=== PATIENT | female | born 1960 | race Caucasian/White ===

== ENCOUNTER 2018-05-11 00:53 | Inpatient (IN) | payer BC ==
[~2018-05-11] VITALS: Ht 165.1 cm; Wt 78.5 kg
[~2018-05-11 00:53] MED LIST: BUSP10TA PO; DOCU-131 PO; ENOX30SY4 SQ; HYDR-3237 PO; LORA1TAB PO; METF500T27 PO; METO-93 PO; OXYC-302 PO; PRAZ1CAP2 PO; TOPI50TA8 PO; TRAZ-136 PO
[2018-05-11] MEDS ORDERED: ATOR20TA9 PO (01:16)
[2018-05-11] MEDS ORDERED: TOPI25TA32 PO (01:16)
[2018-05-11] MEDS ORDERED: LOSA25TA6 PO (01:16)
[2018-05-11] MEDS ORDERED: SERT100T5 PO (01:16)
[2018-05-11] MEDS ORDERED: MORPHINE SULFATE 4 MG/ML, 1ML ONE (01:25)
[2018-05-11 01:27] LABS: BASOPHILS # (AUTO) 0.09 x10^3/uL (0-0.1); BASOPHILS % (AUTO) 1 % (0-1); EOSINOPHILS # (AUTO) 0.06 x10^3/uL (0-0.4); EOSINOPHILS % (AUTO) 0 % (1-7); LYMPHOCYTES % (AUTO) 14 % (22-44); MD NO; MEAN CORPUSCULAR HEMOGLOBIN 30.7 pg (27.0-34.8); MEAN CORPUSCULAR HGB CONC 33.6 g/dL (32.4-35.8); MEAN CORPUSCULAR VOLUME 91.3 fL (80-100); MEAN PLATELET VOLUME 7.5 fL (7.4-10.4); MONOCYTES % (AUTO) 4 % (2-9); NEUTROPHILS # (AUTO) 11.72 x10^3/uL (1.8-6.8); NEUTROPHILS % (AUTO) 82 % (42-75); PLATELET COUNT 363 x10^3/uL (130-400); RED BLOOD COUNT 4.53 x10^6/uL (3.82-5.3); RED CELL DISTRIBUTION WIDTH 14.8 % (9.6-15.2)
[2018-05-11] MEDS ORDERED: MORPHINE SULFATE 4 MG/ML, 1ML IVPush PRN (01:30)
[2018-05-11 01:38] LABS: ALANINE AMINOTRANSFERASE 29 U/L (12-78); ALBUMIN 3.7 g/dL (3.4-5.0); ANION GAP 7 mmol/L (5-15); CALCIUM 9.3 mg/dL (8.5-10.1); CHLORIDE 108 mmol/L (98-107); CREATININE 1.01 mg/dL (0.55-1.02)
[2018-05-11 01:41] LABS: ALKALINE PHOSPHATASE 121 U/L (45-117); BILIRUBIN,TOTAL 0.4 mg/dL (0.2-1.0); TOTAL PROTEIN 7.9 g/dL (6.4-8.2)
[2018-05-11 02:26] VITALS: BP 145/87
[2018-05-11] MEDS ORDERED: LABETALOL 5MG/ML, 20ML IVPush PRN (03:00)
[2018-05-11] MEDS ORDERED: ONDANSETRON ODT 4 MG PO PRN (03:00)
[2018-05-11] MEDS ORDERED: ONDANSETRON 2MG/ML, 2ML IVPush PRN (03:00)
[2018-05-11] MEDS ORDERED: hydrALAzine 20 MG/ML, 1ML IVPush PRN (03:00)
[2018-05-11] MEDS ORDERED: PROMETHAZINE 25 MG/ML, 1ML IM PRN (03:00)
[2018-05-11 03:11] LABS: FREE T4 (FREE THYROXINE) 0.84 ng/dL (0.76-1.46); THYROID STIMULATING HORMONE 6.24 mIU/L (0.358-3.740)
[2018-05-11 03:12] LABS: HEMOGLOBIN A1C 6.4 % (4.2-6.3)
[2018-05-11] MEDS: SODIUM CHLORIDE 0.9% 1,000 ML IV SCH ×3 (03:25→18:33)
[2018-05-11] MEDS: HEPARIN 5,000 UNITS/ML, 1ML SQ SCH ×3 (03:26→18:33)
[2018-05-11 04:19] LABS: CULTURE INDICATED? YES; MICROSCOPIC INDICATED
[2018-05-11] MEDS: morphine SULFATE 10 MG/ML, 1ML IVPush PRN ×3 (06:17→14:37)
[2018-05-11 07:40] VITALS: BP 142/81
[2018-05-11] MEDS: SERTRALINE 100MG TABLET PO SCH (08:34)
[2018-05-11] MEDS: METOPROLOL SUCCINATE 50 MG TAB.ER.24H PO SCH (08:35)
[2018-05-11] MEDS: LOSARTAN 25MG TABLET PO SCH (08:35)
[2018-05-11] MEDS ORDERED: TOPIRAMATE 25 MG TABLET PO SCH (09:00)
[2018-05-11] MEDS: INSULIN LISPRO 100 UNITS/ML, PEN SQ-INSULIN SCH ×3 (11:00→21:00)
[2018-05-11 13:55] VITALS: BP 107/64
[2018-05-11] MEDS ORDERED: CALCIUM CARBONATE 500 MG TAB.CHEW ONE (17:17)
[2018-05-11] MEDS ORDERED: CALCIUM CARBONATE 500 MG TAB.CHEW PO PRN (17:30)
[2018-05-11 20:06] VITALS: BP 128/77
[2018-05-11] MEDS: TOPIRAMATE 25 MG TABLET PO SCH (21:05)
[2018-05-11] MEDS: ATORVASTATIN 20 MG TABLET PO SCH (21:05)
[2018-05-12] MEDS: SODIUM CHLORIDE 0.9% 1,000 ML IV SCH (00:48)
[2018-05-12 02:50] VITALS: BP 127/76
[2018-05-12] MEDS: HEPARIN 5,000 UNITS/ML, 1ML SQ SCH ×3 (03:32→18:45)
[2018-05-12 05:16] LABS: BASOPHILS # (AUTO) 0.03 x10^3/uL (0-0.1); BASOPHILS % (AUTO) 0 % (0-1); EOSINOPHILS # (AUTO) 0.15 x10^3/uL (0-0.4); EOSINOPHILS % (AUTO) 2 % (1-7); LYMPHOCYTES # (AUTO) 2.04 x10^3/uL (1-3.4); LYMPHOCYTES % (AUTO) 21 % (22-44); MD NO; MEAN CORPUSCULAR HEMOGLOBIN 30.9 pg (27.0-34.8); MEAN CORPUSCULAR HGB CONC 33.5 g/dL (32.4-35.8); MEAN CORPUSCULAR VOLUME 92.2 fL (80-100); MEAN PLATELET VOLUME 7.6 fL (7.4-10.4); MONOCYTES # (AUTO) 0.56 x10^3/uL (0.2-0.8); MONOCYTES % (AUTO) 6 % (2-9); NEUTROPHILS # (AUTO) 7.08 x10^3/uL (1.8-6.8); NEUTROPHILS % (AUTO) 72 % (42-75); PLATELET COUNT 285 x10^3/uL (130-400); RED BLOOD COUNT 3.85 x10^6/uL (3.82-5.3); RED CELL DISTRIBUTION WIDTH 14.6 % (9.6-15.2)
[2018-05-12 05:28] LABS: CHLORIDE 111 mmol/L (98-107)
[2018-05-12 05:29] LABS: ANION GAP 3 mmol/L (5-15)
[2018-05-12 05:34] LABS: ALANINE AMINOTRANSFERASE 22 U/L (12-78); ALKALINE PHOSPHATASE 99 U/L (45-117); BILIRUBIN,TOTAL 0.6 mg/dL (0.2-1.0); CHOL/HDL RATIO 4.1; CHOLESTEROL, TOTAL 119 mg/dL (140-239); CREATININE 0.86 mg/dL (0.55-1.02); HDL CHOL % 24 % (28-40); HDL CHOLESTEROL (DIRECT) 29 mg/dL (40-60); LDL CHOLESTEROL,CALCULATED 61 mg/dL (54-169); LDL/HDL RATIO 2.1 (0.5-3.0); TOTAL PROTEIN 6.5 g/dL (6.4-8.2); TRIGLYCERIDES 146 mg/dL (50-200); VLDL CHOLESTEROL 29 mg/dL (0-25)
[2018-05-12 07:07] VITALS: BP 114/71
[2018-05-12] MEDS: INSULIN LISPRO 100 UNITS/ML, PEN SQ-INSULIN SCH ×4 (07:17→20:46)
[2018-05-12 08:02] VITALS: BP 109/71
[2018-05-12] MEDS: METOPROLOL SUCCINATE 50 MG TAB.ER.24H PO SCH (08:09)
[2018-05-12] MEDS: TOPIRAMATE 25 MG TABLET PO SCH ×2 (08:10→20:46)
[2018-05-12] MEDS: LOSARTAN 25MG TABLET PO SCH (08:10)
[2018-05-12] MEDS: SERTRALINE 100MG TABLET PO SCH (08:10)
[2018-05-12 12:56] VITALS: BP 102/65
[2018-05-12 19:41] VITALS: BP 120/58
[2018-05-12] MEDS: ATORVASTATIN 20 MG TABLET PO SCH (20:46)
[2018-05-13 02:00] VITALS: BP 121/63
[2018-05-13] MEDS: HEPARIN 5,000 UNITS/ML, 1ML SQ SCH ×3 (03:17→18:37)
[2018-05-13 07:00] VITALS: BP 118/72
[2018-05-13] MEDS: INSULIN LISPRO 100 UNITS/ML, PEN SQ-INSULIN SCH ×4 (07:00→20:21)
[2018-05-13] MEDS: LOSARTAN 25MG TABLET PO SCH (08:38)
[2018-05-13] MEDS: METOPROLOL SUCCINATE 50 MG TAB.ER.24H PO SCH (08:39)
[2018-05-13] MEDS: TOPIRAMATE 25 MG TABLET PO SCH ×2 (08:39→20:21)
[2018-05-13] MEDS: SERTRALINE 100MG TABLET PO SCH (08:39)
[2018-05-13 13:17] VITALS: BP 100/55
[2018-05-13 19:47] VITALS: BP 108/51
[2018-05-13] MEDS: ATORVASTATIN 20 MG TABLET PO SCH (20:21)
[2018-05-14 02:16] VITALS: BP 113/55
[2018-05-14] MEDS: HEPARIN 5,000 UNITS/ML, 1ML SQ SCH ×2 (04:39→11:01)
[2018-05-14] MEDS: INSULIN LISPRO 100 UNITS/ML, PEN SQ-INSULIN SCH ×2 (07:00→11:00)
[2018-05-14 07:12] VITALS: BP 119/76
[2018-05-14] MEDS: METOPROLOL SUCCINATE 50 MG TAB.ER.24H PO SCH (09:27)
[2018-05-14] MEDS: SERTRALINE 100MG TABLET PO SCH (09:27)
[2018-05-14] MEDS: LOSARTAN 25MG TABLET PO SCH (09:28)
[2018-05-14] MEDS: TOPIRAMATE 25 MG TABLET PO SCH (09:28)
== END 2018-05-14 13:05 | disposition home or self-care (01) | DRG 389 ==
LOC: ED 01:10 → 4NOR 01:24 → ED 02:15 → DCLOUNGE 05-14 12:57
PROVIDERS: ADMIT Internal Medicine; ATTEND Family Medicine
DX: K56.600 Partial intestinal obstruction, unspecified as to cause (principal); E44.1 Mild protein-calorie malnutrition; E11.9 Type 2 diabetes mellitus without complications; D72.829 Elevated white blood cell count, unspecified; E78.5 Hyperlipidemia, unspecified; F32.9 Major depressive disorder, single episode, unspecified; F41.9 Anxiety disorder, unspecified; I10 Essential (primary) hypertension; R09.02 Hypoxemia; Z87.891 Personal history of nicotine dependence; Z90.49 Acquired absence of other specified parts of digestive tract
CPT/HCPCS: 36415; 74018; 80053; 80061; 81001; 82962; 83036; 83735; 84439; 84443; 85025; 87086; 93005; 96374; 99285; G0378; J1644; J2270; J7030